=== PATIENT | male | born 1980 | race Caucasian/White ===

== ENCOUNTER 2022-07-03 19:52 | Emergency (ER) | payer OTHER ==
[~2022-07-03] VITALS: Ht 167.6 cm; Wt 53.9 kg
[2022-07-03 21:07] VITALS: BP 137/94
== END 2022-07-03 22:40 | disposition left against medical advice (07) ==
LOC: ER 19:52
DX: Z53.21 Procedure and treatment not carried out due to patient leaving prior to being seen by health care provider (principal)